=== PATIENT | female | born 1985 | race Caucasian/White ===

== ENCOUNTER 2022-03-25 17:18 | Emergency (ER) | payer MEDICAID ==
[2022-03-25] MEDS ORDERED: cefTRIAXone 2 GM Vial IVPUSH ONE (17:37)
[2022-03-25] MEDS ORDERED: Gabapentin 300 MG Cap PO ONE ×2 (17:53→20:07)
[2022-03-25] MEDS ORDERED: oxyCODONE 5 MG Tab PO ONE ×3 (17:53→20:14)
[2022-03-25 17:58] LABS: ESTIMATED GFR 116 mL/min (>60)
[2022-03-25] MEDS ORDERED: Iopamidol 755 Mg/ML 100 ML Bottle IV ONE (18:02)
== END 2022-03-25 20:29 | disposition home or self-care (01) ==
LOC: FB.ED 17:18
DX: G89.18 Other acute postprocedural pain (principal); M54.16 Radiculopathy, lumbar region; Z88.5 Allergy status to narcotic agent; Z88.1 Allergy status to other antibiotic agents; Z88.8 Allergy status to other drugs, medicaments and biological substances; Z98.1 Arthrodesis status
CPT/HCPCS: 36415; 72132; 80053; 83605; 85025; 86140; 87040; 96374; 99284; 99284-25; A9270-GY; J0696; Q9967

== ENCOUNTER 2024-05-01 17:35 | Emergency (ER) | payer MEDICAID ==
[2024-05-01] MEDS: Cyclobenzaprine 10 MG Tab PO ONE (18:13)
[2024-05-01] MEDS: methylPREDNISolone Sodium Succinate 125 MG/2 ML SDV IM ONE (18:13)
[2024-05-01] MEDS: Ketorolac 30 MG/ML SDV IM ONE (18:14)
== END 2024-05-01 18:25 | disposition home or self-care (01) ==
LOC: FB.ED 17:35
DX: M54.16 Radiculopathy, lumbar region (principal); M79.662 Pain in left lower leg; F17.290 Nicotine dependence, other tobacco product, uncomplicated; Z88.5 Allergy status to narcotic agent; Z88.6 Allergy status to analgesic agent; Z88.8 Allergy status to other drugs, medicaments and biological substances; Z79.899 Other long term (current) drug therapy
CPT/HCPCS: 96372; 99283; A9270-GY; J1885; J2919

== ENCOUNTER 2024-09-15 21:33 | Emergency (ER) | payer MEDICAID ==
[2024-09-15 22:03] LABS: BASOPHILS ABSOLUTE AUTO 0.1 x10-3/uL (0.0-0.1); BASOPHILS PERCENT AUTO 0.8 % (0.2-1.5); EOSINOPHILS ABSOLUTE AUTO 0.1 x10-3/uL (0.0-0.8); EOSINOPHILS PERCENT AUTO 0.6 % (0.6-8.1); LYMPHOCYTES ABSOLUTE AUTO 3.0 x10-3/uL (1.0-4.4); LYMPHOCYTES PERCENT AUTO 26.7 % (18.4-52.1); MEAN PLATELET VOLUME 8.6 fL (7.1-12.4); MONOCYTES ABSOLUTE AUTO 0.7 x10-3/uL (0.3-1.0); MONOCYTES PERCENT AUTO 6.1 % (4.4-15.7); NEUTROPHILS ABSOLUTE AUTO 7.4 x10-3/uL (1.5-6.3); NEUTROPHILS PERCENT AUTO 65.8 % (30.8-76.2); PLATELET COUNT,PLT 276 x10(3)uL (151-488); RED BLOOD CELL COUNT 4.71 x10(6)uL (3.60-5.20); RED CELL DISTRIBUTION WIDTH 13.3 % (12.3-16.5); WHITE BLOOD CELL COUNT,WBC 11.2 x10-3/uL (3.0-10.3)
[2024-09-15 22:07] LABS: BLOOD UREA NITROGEN,BUN 11 mg/dL (7-18); CARBON DIOXIDE,CO2 24 mmol/L (21-32); CHLORIDE,CL 106 mmol/L (100-110); CREATININE 0.9 mg/dL (0.55-1.02); EST CRCL DRUG DOSING (CG) 86.33 mL/min; ESTIMATED GFR 84 mL/min (>60); GLUCOSE RANDOM 98 mg/dL (80-116); POTASSIUM,K 3.3 mmol/L (3.5-5.3); SODIUM,NA 141 mmol/L (135-145)
[2024-09-15 22:13] LABS: A/G RATIO 1.2; ALANINE AMINOTRANSFERASE,ALT 32 U/L (12-36); ASPARTATE AMNIOTRANSFERASE,AST 14 IU/L (5-25); BILIRUBIN TOTAL 0.5 mg/dL (0.1-1.3); PROTEIN TOTAL,TP 6.6 g/dL (6.0-8.0)
[2024-09-15] MEDS: Alum Hydroxide/Mag Hydroxide 15 ML, Lidocaine 2% 15 ML PO ONE (22:35)
[2024-09-15] MEDS: Pantoprazole 20 MG Tab, Delayed Release PO PRN (22:59)
== END 2024-09-15 23:05 | disposition home or self-care (01) ==
LOC: FB.ED 21:33
DX: R07.2 Precordial pain (principal); Z88.1 Allergy status to other antibiotic agents; Z88.2 Allergy status to sulfonamides; Z88.8 Allergy status to other drugs, medicaments and biological substances; Z79.899 Other long term (current) drug therapy
CPT/HCPCS: 36415; 71045; 80053; 84484; 85025; 93005; 99285; A9270

== ENCOUNTER 2025-03-01 13:46 | Emergency (ER) | payer MEDICAID, OTHER ==
[2025-03-01 14:09] LABS: BASOPHILS PERCENT AUTO 0.9 % (0.2-1.5); EOSINOPHILS PERCENT AUTO 1.8 % (0.6-8.1); LYMPHOCYTES ABSOLUTE AUTO 2.0 x10-3/uL (1.0-4.4); LYMPHOCYTES PERCENT AUTO 32.7 % (18.4-52.1); MEAN PLATELET VOLUME 8.8 fL (7.1-12.4); MONOCYTES ABSOLUTE AUTO 0.4 x10-3/uL (0.3-1.0); MONOCYTES PERCENT AUTO 5.9 % (4.4-15.7); NEUTROPHILS ABSOLUTE AUTO 3.7 x10-3/uL (1.5-6.3); NEUTROPHILS PERCENT AUTO 58.7 % (30.8-76.2); PLATELET COUNT,PLT 266 x10(3)uL (151-488); RED BLOOD CELL COUNT 5.16 x10(6)uL (3.60-5.20); RED CELL DISTRIBUTION WIDTH 14.3 % (12.3-16.5); WHITE BLOOD CELL COUNT,WBC 6.3 x10-3/uL (3.0-10.3)
[2025-03-01 14:10] LABS: BASOPHILS ABSOLUTE AUTO 0.1 x10-3/uL (0.0-0.1); EOSINOPHILS ABSOLUTE AUTO 0.1 x10-3/uL (0.0-0.8)
[2025-03-01] MEDS: Ketorolac 30 MG/ML SDV IVPUSH ONE (14:12)
[2025-03-01 14:15] LABS: BLOOD UREA NITROGEN,BUN 8 mg/dL (7-18); CARBON DIOXIDE,CO2 24 mmol/L (21-32); CHLORIDE,CL 106 mmol/L (100-110); CREATININE 0.7 mg/dL (0.55-1.02); ESTIMATED GFR 113 mL/min (>60); GLUCOSE RANDOM 95 mg/dL (80-116); POTASSIUM,K 3.1 mmol/L (3.5-5.3); SODIUM,NA 140 mmol/L (135-145)
[2025-03-01 14:20] LABS: A/G RATIO 1.2; ALANINE AMINOTRANSFERASE,ALT 20 U/L (12-36); ASPARTATE AMNIOTRANSFERASE,AST 12 IU/L (5-25); BILIRUBIN TOTAL 0.8 mg/dL (0.1-1.3); PROTEIN TOTAL,TP 7.2 g/dL (6.0-8.0)
[2025-03-01] MEDS: diphenhydrAMINE 50 MG/ML SDV IVPUSH ONE (14:52)
== END 2025-03-01 16:00 | disposition home or self-care (01) ==
LOC: FB.ED 13:46
DX: G43.909 Migraine, unspecified, not intractable, without status migrainosus (principal); E87.6 Hypokalemia; B34.9 Viral infection, unspecified; R79.82 Elevated C-reactive protein (CRP); Z88.8 Allergy status to other drugs, medicaments and biological substances; Z88.2 Allergy status to sulfonamides; Z79.899 Other long term (current) drug therapy; Z88.5 Allergy status to narcotic agent; Z90.89 Acquired absence of other organs
CPT/HCPCS: 80053; 85025; 86140; 87428; 96374; 96375; 99283; A9270; J1200; J1885; J2765; J7030